=== PATIENT | female | born 1970 | race Hispanic/Latino ===

== ENCOUNTER 2019-11-27 14:15 | Emergency (ER) | payer OTHER ==
--- NOTE | 2019-11-27 16:08 | RAD REPORT ---
EXAM DESCRIPTION: CT - Head Brain Wo Cont - 11/27/2019 3:59 pm CLINICAL HISTORY: HEADACHE COMPARISON: No comparisons TECHNIQUE: Axial 5 mm thick images of the head were obtained without IV contrast. All CT scans are performed using dose optimization technique as appropriate and may include automated exposure control or mA/KV adjustment according to patient size. FINDINGS: No intracranial hemorrhage, mass, edema or shift of mid-line structures. No acute infarcti on changes seen. No abnormal extra-axial fluid collections. Ventricles are asymmetric as a normal alan iant. This is accentuated further by slight head tilt to the scanner. Mastoid air cells are clear. Right-side frontal sinuses clear. Left frontal sinus is fully opacified. The majority of the ethmoid air cells are opacified and there is partial opacification of the spheno id and partially imaged left maxillary sinus. Polyposis component cannot be excluded. There is partia l opacification of the left nasal passage. No acute bony findings. Thickened, sclerotic left maxillary sinus mccarthy are present but only partial ly imaged. IMPRESSION: Extensive paranasal sinus disease present as a potential source for headache. This is a mixed acute and chronic sinusitis pattern. No intracranial abnormalities.
--- NOTE | 2019-11-27 16:19 | EDPHYS ---
Physician Documentation [facility] Name: Shavonne Templeton Age: 49 yrs Sex: Female : 1970 Arrival Date: 11/27/2019 Time: 14:19 Bed 16 Private MD: ED Physician Dom Lim HPI: 11/26 15:42 This 49 yrs old Female presents to ER via Ambulatory with complaints of kb Headache, Nausea. 15:42 The patient complains of pain to the left side of head. The patient describes the kb headache as constant. Onset: The symptoms/episode began/occurred 5 day(s) ago. Associated signs and symptoms: Pertinent positives: Photophobia sinus tenderness. Severity of symptoms: At its worst the pain was moderate, in the emergency department the pain is unchanged. Headache History: Denies prior headaches. The symptoms are alleviated by nothing. the symptoms are aggravated by lights, movement, noise. The patient has not experienced similar symptoms in the past. The patient has not recently seen a physician. Pt reports headache for 5 days to left side of head. Denies injury, trauma, previous headaches.. Historical: - Allergies: 14:43 No Known Allergies; ss - Immunization history:: Adult Immunizations up to date. - Social history:: Smoking status: Patient denies any tobacco usage or history of. ROS: 15:41 Constitutional: Negative for fever, chills, and weight loss, ENT: Negative for injury, kb pain, and discharge, Neck: Negative for injury, pain, and swelling, Cardiovascular: Negative for chest pain, palpitations, and edema, Respiratory: Negative for shortness of breath, cough, wheezing, and pleuritic chest pain, Abdomen/GI: Negative for abdominal pain, nausea, vomiting, diarrhea, and constipation, Back: Negative for injury and pain, MS/Extremity: Negative for injury and deformity, Skin: Negative for injury, rash, and discoloration. 15:41 Neuro: Positive for headache. Exam: 15:41 Constitutional: This is a well developed, well nourished patient who is awake, alert, kb and in no acute distress. Head/Face: Normocephalic, atraumatic. ENT: Nares patent. No nasal discharge, no septal abnormalities noted. Tympanic membranes are normal and external auditory canals are clear. Oropharynx with no redness, swelling, or masses, exudates, or evidence of obstruction, uvula midline. Mucous membranes moist. Neck: Trachea midline, no thyromegaly or masses palpated, and no cervical lymphadenopathy. Supple, full range of motion without nuchal rigidity, or vertebral point tenderness. No Meningismus. Chest/axilla: Normal chest wall appearance and motion. Nontender with no deformity. No lesions are appreciated. Cardiovascular: Regular rate and rhythm with a normal S1 and S2. No gallops, murmurs, or rubs. Normal PMI, no JVD. No pulse deficits. Respiratory: Lungs have equal breath sounds bilaterally, clear to auscultation and percussion. No rales, rhonchi or wheezes noted. No increased work of breathing, no retractions or nasal flaring. Abdomen/GI: Soft, non-tender, with normal bowel sounds. No distension or tympany. No guarding or rebound. No evidence of tenderness throughout. Skin: Warm, dry with normal turgor. Normal color with no rashes, no lesions, and no evidence of cellulitis. MS/ Extremity: Pulses equal, no cyanosis. Neurovascular intact. Full, normal range of motion. Neuro: Awake and alert, GCS 15, oriented to person, place, time, and situation. Cranial nerves II-XII grossly intact. Motor strength 5/5 in all extremities. Sensory grossly intact. Cerebellar exam normal. Normal gait. 15:41 Head/face: Sinus tenderness, that is moderate, is located over the left frontal sinus and left maxillary sinus. Vital Signs: 14:41 BP 135 / 86; Pulse 90; Resp 15; Temp 98(TE); Pulse Ox 100% on R/A; Weight 89.81 kg; ss Height 5 ft. 3 in. (160.02 cm); Pain 10/10; 14:41 Body Mass Index 35.07 (89.81 kg, 160.02 cm) [place] Coma Score: 15:42 Eye Response: spontaneous(4). Verbal Response: oriented(5). Motor Response: obeys kb commands(6). Total: 15. MDM: 15:22 Patient medically screened. kb 15:42 Data reviewed: vital signs, nurses notes. Data interpreted: Pulse oximetry: on room air kb is 100 %. Interpretation: normal. 16:15 Counseling: I had a detailed discussion with the patient and/or guardian regarding: the kb historical points, exam findings, and any diagnostic results supporting the discharge/admit diagnosis, radiology results, the need for outpatient follow up, a family practitioner, to return to the emergency department if symptoms worsen or persist or if there are any questions or concerns that arise at home. 11/26 15:38 Order name: CT Head Brain wo Cont; Complete Time: 16:35 kb Administered Medications: 16:17 CANCELLED (Other Intervention Used): NS 0.9% 1000 ml IV at 1000 ml once kb 16:17 CANCELLED (Other Intervention Used): Decadron - Dexamethasone 10 mg IVP once kb 16:17 CANCELLED (Other Intervention Used): Reglan 10 mg IVP once; over 1 to 2 minutes kb 16:17 CANCELLED (Physician Discretion): TORadol - Ketorolac 15 mg IVP once kb 16:32 Drug: predniSONE 40 mg Route: PO; em 16:56 Follow up: Response: No adverse reaction em 16:32 Drug: Augmentin 875 mg Route: PO; em 16:56 Follow up: Response: No adverse reaction em 16:33 Drug: TORadol 30 mg Route: IM; Site: left deltoid; em 16:56 Follow up: Response: No adverse reaction em Disposition: 17:18 Co-signature as Attending Physician, Dom Lim MD I agree with the assessment and kdr plan of care. Disposition: 11/27/19 16:18 Discharged to Home. Impression: Acute sinusitis. - Condition is Stable. - Discharge Instructions: Sinusitis, Adult, [id number]. - Prescriptions for Augmentin 875- 125 mg Oral Tablet - take 1 tablet by ORAL route every 12 hours for 10 days; 20 tablet. Prednisone 20 mg Oral Tablet - take 1 tablet by ORAL route once daily for 5 days; 5 tablet. - Medication Reconciliation Form, Thank You Letter, Antibiotic Education, Prescription Opioid Use form. - Follow up: Emergency Department; When: As needed; Reason: Worsening of condition. Follow up: Private Physician; When: 2 - 3 days; Reason: Recheck today's complaints, Continuance of care, Re-evaluation by your physician. Signatures: Dis[facility] Sheela Anderson, STEPHYC RELL-Dom eVlasquez MD MD [facility] Darrin Rivera RN RN Cora Joshi RN RN ss Corrections: (The following items were deleted from the chart) 16:17 16:08 IV Saline Lock ordered. kb kb 16:17 16:08 NS 0.9% 1000 ml IV at 1000 ml once ordered. kb kb 16:17 16:08 Decadron - Dexamethasone 10 mg IVP once ordered. kb kb 16:17 16:08 Reglan 10 mg IVP once; over 1 to 2 minutes ordered. kb kb 16:17 16:14 TORadol - Ketorolac 15 mg IVP once ordered. kb kb 16:31 16:08 Influenza Screen (A \T\ B)+[id number].LAB.BRZ ordered. EDMS EDMS 16:57 16:18 11/27/2019 16:18 Discharged to Home. Impression: Acute sinusitis. Condition is em Stable. Discharge Instructions: Sinusitis, Adult, [id number]. Prescriptions for Augmentin 875-125 mg Oral Tablet - take 1 tablet by ORAL route every 12 hours for 10 days; 20 tablet, Prednisone 20 mg Oral Tablet - take 1 tablet by ORAL route once daily for 5 days; 5 tablet. and Forms are Medication Reconciliation Form, Thank You Letter, Antibiotic Education, Prescription Opioid Use. Follow up: Emergency Department; When: As needed; Reason: Worsening of condition. Follow up: Private Physician; When: 2 - 3 days; Reason: Recheck today's complaints, Continuance of care, Re-evaluation by your physician. kb
--- NOTE | 2019-11-27 16:19 | ER ---
Nurse's Notes [facility] Name: Shavonne Templeton Age: 49 yrs Sex: Female : 1970 Arrival Date: 11/27/2019 Time: 14:19 Bed 16 Private MD: Diagnosis: Acute sinusitis Presentation: 11/26 14:41 Chief complaint: Patient states: headache x 5 days. Coronavirus screen: The patient has ss NOT traveled to a country currently being monitored by the [facility] within the last 14 days. Proceed with normal triage procedures. Ebola Screen: Patient denies exposure to infectious person. Patient denies travel to an Ebola-affected area in the 21 days before illness onset. Initial Sepsis Screen: Does the patient meet any 2 criteria? No. Patient's initial sepsis screen is negative. Does the patient have a suspected source of infection? No. Patient's initial sepsis screen is negative. Risk Assessment: Do you want to hurt yourself or someone else? Patient reports no desire to harm self or others. 14:41 Method Of Arrival: Ambulatory ss 14:41 Acuity: RANDALL 4 ss Historical: - Allergies: 14:43 No Known Allergies; ss - Immunization history:: Adult Immunizations up to date. - Social history:: Smoking status: Patient denies any tobacco usage or history of. Screenin:04 Abuse screen: Denies threats or abuse. Nutritional screening: No deficits noted. em Tuberculosis screening: No symptoms or risk factors identified. Fall Risk None identified. Assessment: 16:04 General: Appears in no apparent distress. uncomfortable, Behavior is calm, cooperative, em Denies fever. Pain: Complains of pain in left side of head and left frontal sinus Pain currently is 10 out of 10 on a pain scale. Neuro: Level of Consciousness is awake, alert, obeys commands, Oriented to person, place, time, situation, Appropriate for age Moves all extremities. Gait is steady, Speech is normal, Reports headache. Cardiovascular: Capillary refill < 3 seconds Patient's skin is warm and dry. Respiratory: Airway is patent Respiratory effort is even, unlabored, Respiratory pattern is regular, symmetrical. GI: Patient currently denies nausea, vomiting. Derm: Skin is intact, is healthy with good turgor, Skin is pink, warm \T\ dry. Musculoskeletal: Capillary refill < 3 seconds, Range of motion: intact in all extremities. Vital Signs: 14:41 BP 135 / 86; Pulse 90; Resp 15; Temp 98(TE); Pulse Ox 100% on R/A; Weight 89.81 kg; ss Height 5 ft. 3 in. (160.02 cm); Pain 10/10; 14:41 Body Mass Index 35.07 (89.81 kg, 160.02 cm) ss [place] Coma Score: 15:42 Eye Response: spontaneous(4). Verbal Response: oriented(5). Motor Response: obeys kb commands(6). Total: 15. ED Course: 14:19 Patient arrived in ED. mr 14:43 Triage completed. ss 14:43 Arm band placed on right wrist. ss 15:22 Sheela Conner FNP-C is PHCP. kb 15:22 Dom Lim MD is Attending Physician. kb 15:34 Darrin Rivera, HILDA is Primary Nurse. em 16:02 CT Head Brain wo Cont In Process Unspecified. EDMS 16:04 Patient has correct armband on for positive identification. Bed in low position. Call em light in reach. Side rails up X2. 16:54 No provider procedures requiring assistance completed. Patient did not have IV access em during this emergency room visit. Administered Medications: 16:17 CANCELLED (Other Intervention Used): NS 0.9% 1000 ml IV at 1000 ml once kb 16:17 CANCELLED (Other Intervention Used): Decadron - Dexamethasone 10 mg IVP once kb 16:17 CANCELLED (Other Intervention Used): Reglan 10 mg IVP once; over 1 to 2 minutes kb 16:17 CANCELLED (Physician Discretion): TORadol - Ketorolac 15 mg IVP once kb 16:32 Drug: predniSONE 40 mg Route: PO; em 16:56 Follow up: Response: No adverse reaction em 16:32 Drug: Augmentin 875 mg Route: PO; em 16:56 Follow up: Response: No adverse reaction em 16:33 Drug: TORadol 30 mg Route: IM; Site: left deltoid; em 16:56 Follow up: Response: No adverse reaction em Outcome: 16:18 Discharge ordered by . kb 16:55 Discharged to home ambulatory. em 16:55 Condition: good 16:55 Discharge instructions given to patient, Instructed on discharge instructions, follow up and referral plans. medication usage, Demonstrated understanding of instructions, follow-up care, medications, Prescriptions given X 2. 16:57 Patient left the ED. em Signatures: Dispatcher [employer] Sheela Anderson, DELORES ZACARIAS-Diana Seymour Edgar, RN RN Cora Joshi RN RN ss
[2019-11-27] MEDS ORDERED: predniSONE 20 MG TAB ONE (16:27)
[2019-11-27] MEDS ORDERED: KETOROLAC 30 MG/ML INJ ONE (16:28)
[2019-11-27] MEDS ORDERED: AMOX/K CLAV 875 MG TAB ONE (16:28)
[2019-11-27 17:29] VITALS: BP 135/86; TEMP 98; O2SAT 100
== END 2019-11-27 16:57 | disposition home or self-care (01) ==
LOC: ER 14:15
DX: J01.90 Acute sinusitis, unspecified (principal)
CPT/HCPCS: 70450; 96372; 99283; J7512